=== PATIENT | female | born 1995 | race Caucasian/White ===

== ENCOUNTER 2018-02-06 00:30 | Emergency (ER) | payer OTHER ==
[~2018-02-06] VITALS: Ht 157.5 cm; Wt 68.2 kg
[~2018-02-06 00:30] MED LIST: ANDRODERM2.5 MG/24 TD; AVEED IJ
[2018-02-06 00:33] VITALS: PULSE 107; TEMP 99.1
[2018-02-06] MEDS ORDERED: AMOXICILLIN875 MG (00:53)
[2018-02-06 02:53] VITALS: BP 117/66
== END 2018-02-06 02:00 | disposition home or self-care (01) ==
LOC: COL.ER 00:30
DX: J02.9 Acute pharyngitis, unspecified (principal)
CPT/HCPCS: J1100

== ENCOUNTER 2019-12-12 01:18 | Emergency (ER) | payer OTHER ==
[~2019-12-12] VITALS: Ht 157.5 cm; Wt 81.8 kg
[~2019-12-12 01:18] MED LIST changes: +AMOXICILLIN875 MG
[2019-12-12 01:24] VITALS: TEMP 98
[2019-12-12] MEDS ORDERED: ZYRTEC5 MG PO (01:27)
[2019-12-12] MEDS ORDERED: PROTONIX 40MG T40 MG PO (01:27)
[2019-12-12] MEDS ORDERED: PEPCID 20MG TAB20 MG PO (01:28)
[2019-12-12 02:46] LABS: COLLECTION METHOD CLEAN CATCH
[2019-12-12 02:53] LABS: MUCOUS Present /lpf; PH 5 (5-8); SQUAMOUS EPITHELIAL 0-2 /hpf; URINE APPEARANCE Clear; URINE BACTERIA None Seen /hpf; URINE BILIRUBIN Negative (NEGATIVE); URINE BLOOD Negative (NEGATIVE); URINE COLOR Yellow; URINE GLUCOSE Negative (NEGATIVE); URINE KETONE Negative (NEGATIVE); URINE LEUKOCYTE ESTERASE Negative (NEGATIVE); URINE NITRATE Negative (NEGATIVE); URINE PROTEIN(semi-quant) Negative (NEGATIVE); URINE RBC 0-2 /hpf; URINE UROBILINOGEN Negative (NEGATIVE)
[2019-12-12 03:04] VITALS: BP 125/85; PULSE 93
== END 2019-12-12 03:04 | disposition home or self-care (01) ==
LOC: COL.ER 01:18
PROVIDERS: Nurse Practitioner
DX: K43.9 Ventral hernia without obstruction or gangrene (principal); K21.9 Gastro-esophageal reflux disease without esophagitis; Z87.891 Personal history of nicotine dependence; Z32.02 Encounter for pregnancy test, result negative

== ENCOUNTER → 2019-12-20 | Outpatient (CLI) | payer OTHER ==
[~2019-12-20] MED LIST changes: +PEPCID 20MG TAB20 MG PO; +PROTONIX 40MG T40 MG PO; +ZYRTEC5 MG PO
== END ==
LOC: COL.RAD 12:17
DX: R19.00 Intra-abdominal and pelvic swelling, mass and lump, unspecified site (principal)

== ENCOUNTER 2022-06-04 21:11 | Emergency (ER) | payer SELFPAY ==
[~2022-06-04] VITALS: Ht 157.5 cm; Wt 75.0 kg
[2022-06-04 21:17] VITALS: BP 126/84; TEMP 98.5
[2022-06-04 21:50] VITALS: PULSE 81
== END 2022-06-04 21:50 | disposition home or self-care (01) ==
LOC: COL.ER 21:11
DX: S90.561A Insect bite (nonvenomous), right ankle, initial encounter (principal); L08.9 Local infection of the skin and subcutaneous tissue, unspecified; W57.XXXA Bitten or stung by nonvenomous insect and other nonvenomous arthropods, initial encounter; Y92.59 Other trade areas as the place of occurrence of the external cause; Y99.0 Civilian activity done for income or pay